=== PATIENT | female | born 1990 | race Two or more races ===

== ENCOUNTER 2017-12-06 07:34 | Emergency (ER) | payer MEDICAID ==
[~2017-12-06] VITALS: Ht 152.4 cm; Wt 65.8 kg
[~2017-12-06 07:34] MED LIST: MET10T PO; OMEP20CA74 PO; TRAZ100T2 PO
[2017-12-06 07:59] VITALS: BP 153/95
[2017-12-06] MEDS ORDERED: KETOROLAC TROMETH 60MG/2ML VIAL IM ONE (08:00)
== END 2017-12-06 09:05 | disposition home or self-care (01) ==
LOC: ER 07:34
DX: M25.512 Pain in left shoulder (principal); F17.210 Nicotine dependence, cigarettes, uncomplicated; Z88.0 Allergy status to penicillin; X58.XXXA Exposure to other specified factors, initial encounter; Y93.89 Activity, other specified; Y92.89 Other specified places as the place of occurrence of the external cause; Y99.8 Other external cause status
CPT/HCPCS: 73030; 96372; 99284; J1885